=== PATIENT | female | born 1985 | race Caucasian/White ===

== ENCOUNTER 2020-12-17 18:20 | Emergency (ER) | payer BC, SELFPAY ==
[~2020-12-17] VITALS: Ht 167.6 cm; Wt 59.0 kg
[2020-12-17 18:20] VITALS: BP_SYST 110
[2020-12-17 20:20] VITALS: BP_SYST 108
== END 2020-12-17 20:20 | disposition home or self-care (01) ==
LOC: SED 18:20
DX: J02.9 Acute pharyngitis, unspecified (principal); Z20.822 Contact with and (suspected) exposure to COVID-19
CPT/HCPCS: 36415; 86710; 99283

== ENCOUNTER 2020-12-28 12:28 | Emergency (ER) | payer BC, SELFPAY ==
[~2020-12-28] VITALS: Ht 167.6 cm; Wt 59.0 kg
[2020-12-28 13:35] VITALS: BP_SYST 131
--- NOTE | 2020-12-28 15:52 | NUR ---
Patient to ER bed 7 to gown for evaluation. Side rails up.
--- NOTE | 2020-12-28 15:53 | NUR ---
Pt came into ER with C/O nausea X3days. Pt denies pain. Pt vomitted yesterday clear fluid at home. Pt denies SOB. Pt is non febrile. Pt is AAOX4 speaking full sentences VSS no distress noted. Pt reports positive test at the end of february and pt had an ultrasound [id number] ago to confirm . Pt resting comfortably in [facility]. Urine collected by triage nurse prior to room placement and sent to lab.
--- NOTE | 2020-12-28 16:08 | NUR ---
Lab at bedside.
[2020-12-28 16:18] LABS: BASOPHILS % (AUTO) 0.8 % (0.0-2.0); EOSINOPHILS # (AUTO) 0.1 K/uL (0.0-0.4); EOSINOPHILS % (AUTO) 0.9 % (0.0-4.0); HEMATOCRIT 40.6 % (36-48); HEMOGLOBIN 13.9 g/dL (12.0-16.0); LYMPHOCYTES # (AUTO) 0.9 K/uL (1.0-5.5); LYMPHOCYTES % (AUTO) 16.5 % (20.5-51.5); MEAN CORPUSCULAR HEMOGLOBIN 30 pg (27-31); MEAN CORPUSCULAR HGB CONC 34 % (32-36); MEAN CORPUSCULAR VOLUME 88 fL (79.0-98.0); MONOCYTES # (AUTO) 0.5 K/uL (0.0-1.0); MONOCYTES % (AUTO) 9.4 % (1.7-9.3); NEUTROPHILS # (AUTO) 4.2 K/uL (1.8-7.7); NEUTROPHILS % (AUTO) 72.4 % (40.0-70.0); PLATELET COUNT (AUTO) 266 K/uL (130-430); RED BLOOD CELL COUNT(AUTO) 4.62 MIL/uL (4.2-6.2); RED CELL DISTRIBUTION WIDTH 12.7 % (9.0-15.0); WHITE BLOOD COUNT (AUTO) 5.7 K/uL (4.8-10.8)
[2020-12-28 16:42] LABS: CALCIUM 8.5 mg/dL (8.4-11.0); CREATININE 0.62 mg/dL (0.55-1.30)
--- NOTE | 2020-12-28 17:10 | NUR ---
ER at bedside examining patient.
--- NOTE | 2020-12-28 17:14 | NUR ---
# 20 gauge angiocath placed to LAC. Use of asceptic technique. Opsite placed over site. Blood return noted. Blood for lab drawn from site. Flushed with 10 cc of normal saline. No evidence of infiltration noted. Patient tolerated well.
[2020-12-28] MEDS ORDERED: NACL 0.9% 1,000 ML IV ONE (17:15)
[2020-12-28] MEDS ORDERED: METOCLOPRAMIDE HCL 10 MG/2 ML VIAL IVP ONE (17:15)
[2020-12-28] MEDS ORDERED: DIPHENHYDRAMINE INJ 50 MG/ML VIAL IVP ONE (17:15)
[2020-12-28 17:17] LABS: ALBUMIN 3.6 g/dL (3.4-4.8); TOTAL BILIRUBIN 0.3 mg/dL (0.0-1.0)
[2020-12-28] MEDS ORDERED: METOCLOPRAMIDE HCL 10 MG TABLET PO ONE (17:30)
[2020-12-28] MEDS ORDERED: DIPHENHYDRAMINE HCL 50 MG CAPSULE PO ONE (17:30)
--- NOTE | 2020-12-28 18:29 | NUR ---
Pt states she feels better. Breathing is even and unlabored.
--- NOTE | 2020-12-28 18:47 | NUR ---
Note undone in EDM - 12/28/20 at 1849 by MARTHA dis Patient given written and verbal discharge instructions and verbalizes understanding. ER discussed with patient the results and treatment provided. Patient in stable condition. ID arm band removed. IV catheter removed intact and dressing applied, no active bleeding. Patient educated on pain management and to follow up with PMD. Pain Scale 0/10. Opportunity for questions provided and answered. Medication side effect fact sheet provided.
[2020-12-28 18:48] VITALS: BP_SYST 131
== END 2020-12-28 18:48 | disposition home or self-care (01) ==
LOC: SED 12:28
DX: O21.0 Mild hyperemesis gravidarum (principal); Z3A.10 10 weeks gestation of pregnancy
CPT/HCPCS: 36415; 80053; 84702; 85025; 96360; 99283; J7030; J8597; Q0163

== ENCOUNTER 2021-02-05 05:50 | Day surgery (SDC) | payer BC, SELFPAY ==
[2021-02-04 09:13] LABS: BASOPHILS % (AUTO) 0.5 % (0.0-2.0); EOSINOPHILS % (AUTO) 0.6 % (0.0-4.0); HEMATOCRIT 35.2 % (36-48); HEMOGLOBIN 12.1 g/dL (12.0-16.0); LYMPHOCYTES # (AUTO) 1.3 K/uL (1.0-5.5); LYMPHOCYTES % (AUTO) 17.6 % (20.5-51.5); MEAN CORPUSCULAR HEMOGLOBIN 30 pg (27-31); MEAN CORPUSCULAR HGB CONC 34 % (32-36); MEAN CORPUSCULAR VOLUME 87 fL (79.0-98.0); MONOCYTES # (AUTO) 0.4 K/uL (0.0-1.0); MONOCYTES % (AUTO) 4.9 % (1.7-9.3); NEUTROPHILS # (AUTO) 5.6 K/uL (1.8-7.7); NEUTROPHILS % (AUTO) 76.4 % (40.0-70.0); PLATELET COUNT (AUTO) 218 K/uL (130-430); RED BLOOD CELL COUNT(AUTO) 4.05 MIL/uL (4.2-6.2); RED CELL DISTRIBUTION WIDTH 13.5 % (9.0-15.0); WHITE BLOOD COUNT (AUTO) 7.3 K/uL (4.8-10.8)
[2021-02-04 10:30] LABS: BILIRUBIN,URINE NEGATIVE (NEGATIVE); BLOOD, URINE NEGATIVE (NEGATIVE); CLARITY/URINE CLEAR (CLEAR); COLOR,URINE YELLOW (YELLOW); GLUCOSE,URINE NEGATIVE (NEGATIVE); KETONES,URINE NEGATIVE (NEGATIVE); LEUKOCYTE ESTERASE ,URINE 2+ (NEGATIVE); NITRITE, URINE NEGATIVE (NEGATIVE); PH,URINE 6.5 (5.0-8.0); PROTEIN URINE NEGATIVE (NEGATIVE); UROBILINOGEN,URINE 0.2 (0.2-1.0)
[2021-02-04 11:38] LABS: BACTERIA,URINE FEW /HPF (None Seen); YEAST,URINE Few /HPF (None Seen)
[~2021-02-05] VITALS: Ht 167.6 cm; Wt 61.2 kg
[2021-02-05] MEDS ORDERED: CEFAZOLIN SOD 1 GM in D5W 50 ML IV ONE (07:00)
[2021-02-05] MEDS ORDERED: NS IRRIG SOLN 1000 ML IR ONE (07:35)
[2021-02-05] MEDS ORDERED: LR 1,000 ML IV.SOLN IV ONE (07:35)
[2021-02-05] MEDS ORDERED: OXYTOCIN 10 UNIT/ML VIAL ONE (08:10)
[2021-02-05 08:35] VITALS: BP_SYST 89
[2021-02-05] MEDS ORDERED: MORPHINE SULFATE 10 MG/ML VIAL IM PRN (08:45)
[2021-02-05] MEDS ORDERED: TERBUTALINE SULFATE 1 MG/ML VIAL SUBCUT ONE (08:45)
[2021-02-05] MEDS ORDERED: CEFAZOLIN 1 GM IVPB PREMIX 50 ML IV ONE (14:00)
== END 2021-02-05 15:20 | disposition home or self-care (01) ==
LOC: SDS 05:50 → SMU 05:50 → SPU 10:59 → SDS 15:20
PROVIDERS: ATTEND Specialist
DX: O34.32 Maternal care for cervical incompetence, second trimester (principal); Z3A.16 16 weeks gestation of pregnancy; Z20.822 Contact with and (suspected) exposure to COVID-19; Z79.899 Other long term (current) drug therapy
CPT/HCPCS: 36415; 59320; 81000; 85025; 86886; 86900; 86901; 87070 ×2; 87086; J0690 ×2; J3105; J7060; J7120; U0003; J2590

== ENCOUNTER 2021-04-13 03:18 | Emergency (ER) | payer BC, SELFPAY ==
[~2021-04-13] VITALS: Ht 167.6 cm; Wt 64.9 kg
[2021-04-13 03:30] VITALS: BP_SYST 117
--- NOTE | 2021-04-13 03:35 | NUR ---
Patient triaged and placed in waiting room. VS checked and patient appears in no acute distress at this time. Accompanied by self, awaiting available bed, and MD notified of need for MSE.
--- NOTE | 2021-04-13 06:14 | NUR ---
Patient ambulatory to bed 2 for evaluation
--- NOTE | 2021-04-13 06:19 | NUR ---
ER at bedside examining patient.
--- NOTE | 2021-04-13 06:37 | NUR ---
heart tone of 134bpm at RLQ monitored by OB RN
--- NOTE | 2021-04-13 06:43 | NUR ---
MONI FROM OB CONFIRMED BABY HEART RATE AND POSITIVE MOVEMENT. MOTHER DENIES ANY CRAMPING ARE ABD PAIN . PT VSS D/CD HOME
[2021-04-13 07:01] VITALS: BP_SYST 131
== END 2021-04-13 06:31 | disposition home or self-care (01) ==
LOC: SED 03:18
DX: O99.512 Diseases of the respiratory system complicating pregnancy, second trimester (principal); J06.9 Acute upper respiratory infection, unspecified; R07.81 Pleurodynia; Z3A.27 27 weeks gestation of pregnancy
CPT/HCPCS: 99283